=== PATIENT | male | born 1990 | race Caucasian/White ===

== ENCOUNTER 2017-02-01 00:55 | Emergency (ER) | payer OTHER ==
--- NOTE | ~2017-02-01 | CR63 ---
[facility] A Service of [facility] & [facility] RADIOLOGY TEXT RESULTS PATIENT: STONEY ECHEVERRIA LOCATION: [facility] : [birth year] UNIT #: [id number] AGE: [address]: Imtiaz Sanchez MD SEX: M ORDER DR: [id number] [facility] [address] [place], [place] [address] [id number] E MR#: [id number] Acc #: [id number] NAME: STONEY ECHEVERRIA : 1990 SEX: M STUDY DATE/TIME: 02/01/2017 0:40 UNIT: [facility] ROOM: STUDY DESCRIPTION: CR Chest 2 View Attending Physician: Imtiaz Sanchez M.D. Ordering Physician: Imtiaz Sanchez M.D. [facility] RE[facility] This report is preliminary unless electronic signature is present EXAM PA and lateral chest. Date 02/01/2017 at 00:40. HISTORY Congestion, cough and shortness breath for 3-5 days. COMPARISON None. FINDINGS There is suspected mild airspace disease in the posterior right lower lobe. No dense consolidations are identified. No pleural effusion or pneumothorax is seen. Heart size is within normal limits. IMPRESSION Suspected mild posterior right lower lobe airspace disease. Correlate clinically for pneumonia. Radiographic followup to document resolution recommended. Dictated by... Ivis Gomez M.D. THIS IS AN ELECTRONICALLY VERIFIED REPORT Ivis Gomez M.D. at 02/01/2017 9:56 PM LLH/gz TD: 02/01/2017 11:06 JOB #: [id number] MEDICAL IMAGING REPORT COPY
[~2017-02-01 00:55] MED LIST: ABILIFY PO; CLARITIN10 MG PO; COLACE PO; IBUPROFEN600 MG PO; MOTRIN PO; PENICILLIN PO; PHENERGAN PO; VEETIDS 500500 M1 PO; ZOLOFT PO
[2017-02-01 01:30] LABS: INFLUENZA A NEG (NEG); INFLUENZA B NEG (NEG)
== END 2017-02-01 01:51 | disposition home or self-care (01) ==
LOC: CED 00:55
PROVIDERS: Emergency Medicine
DX: J18.9 Pneumonia, unspecified organism (principal); F31.9 Bipolar disorder, unspecified; F17.210 Nicotine dependence, cigarettes, uncomplicated
CPT/HCPCS: 71020; 87651; 87804; 99283; J1200; J2765

== ENCOUNTER 2017-06-09 18:01 | Emergency (ER) | payer OTHER ==
[~2017-06-09] VITALS: Ht 175.3 cm; Wt 63.0 kg
== END 2017-06-09 18:45 | disposition home or self-care (01) ==
LOC: CED 18:01 → CFTX 18:01
DX: L25.5 Unspecified contact dermatitis due to plants, except food (principal); F31.9 Bipolar disorder, unspecified; F17.210 Nicotine dependence, cigarettes, uncomplicated; Z98.890 Other specified postprocedural states
CPT/HCPCS: 99282